=== PATIENT | male | born 1940 | race Caucasian/White ===

== ENCOUNTER 2016-12-22 07:31 | Day surgery (SDC) | payer MEDICARE ==
[2016-12-22] VITALS (8 sets, daily range): BP systolic 110–129; BP diastolic 58–66; PULSE 49–56; RESP 7–14; O2SAT 95–100
[~2016-12-22] VITALS: Ht 175.3 cm; Wt 67.1 kg
[~2016-12-22 07:31] MED LIST: ALEN70SO3 PO; CALC500C PO; CHOL400T3 PO; CeFAZolin Inj 2 GM in IV Premix 1 EACH IV SCH; HYDR-4003 PO; MULT-1018 PO; ONDA-53 PO; VERA180T5 PO; [UNRECOGNIZED DRUG - CODE] MC; probiotic PO
[2016-12-22] MEDS ORDERED: Propofol 10,000 mCg/mL 20 mL Inj ONE (07:32)
[2016-12-22] MEDS ORDERED: Lidocaine PF 1% 30 mL Inj ONE (07:32)
[2016-12-22] MEDS ORDERED: Ondansetron 2 mg/mL 2 mL Inj ONE (07:32)
[2016-12-22] MEDS ORDERED: fentaNYL-PF 50 mCg/mL 2 mL Inj ONE (07:32)
[2016-12-22] MEDS ORDERED: Glycopyrrolate 0.2 mg/mL 5 mL Inj ONE (07:32)
[2016-12-22] MEDS ORDERED: EPHEDrine/NS 5 mg/mL 5 mL Syringe ONE (07:32)
[2016-12-22] MEDS ORDERED: Dexamethasone 4 mg/mL Inj ONE (07:32)
[2016-12-22] MEDS: Lactated Ringer's 1,000 ML IV SCH ×2 (08:50→10:46)
[2016-12-22] MEDS ORDERED: LOSA25TA21 PO (08:58)
[2016-12-22] MEDS ORDERED: CHOL200025 PO (09:01)
[2016-12-22] MEDS ORDERED: Lactated Ringer's 500 ML IV PRN (11:07)
[2016-12-22] MEDS ORDERED: Lactated Ringer's 1,000 ML IV SCH (11:07)
--- NOTE | 2016-12-22 11:07 | PCM.HPANE ---
Patient Data Surgeon Admitting Provider: Attending Provider:Zac Marti MD Primary Care Physician:Loc Roach MD Other Provider:Lalito Bhandari Anesthesia Reason for Visit Right Renal Calculus Ht/WT & BMI Height (Feet): 5 Height (Inches): 9 Weight (Kilograms): 67.1 Body Mass Index 21.00 Allergies Coded Allergies: Lactose (Verified Allergy, Mild, 06/06/12) Soy (Verified Allergy, Mild, 06/06/12) Past Anesthesia History Anesthesia History: Denies:: Anesthesia Reactions Diabetes History Hx Diabetes?: No MRSA MRSA: No ((not MRSA- hx of staph infection)) Medications Home Meds Incl Beta Consuelo: No Reported Medications Cholecalciferol (Vitamin D3) (Vitamin D3)2,000 Unit Tablet2,000 Unit PO DAILY 12/22/16 Losartan Potassium 25 Mg Ltyktz15 Mg PO DAILY 12/22/16 Verapamil ER 180 Mg Tablet.er180 Mg PO BID Ref 0 12/21/16 [probiotic] No Conflict Check1 Tab PO DAILY 12/21/16 Multivitamin (Multi Vitamin Daily)1 Each Tablet1 Each PO DAILY 30 Days Ref 0 12/21/16 Cod Liver Oil 4,000 Ml Oil4,000 Ml MC DAILY 12/21/16 Calcium Carbonate (Calci-Mix)500 Mg Oycnhlg195 Mg PO BID 12/21/16 Alendronate Oral Soln 70 Mg/75 Ml Bkrutqip11 Mg PO WEEKLY Ref 0 12/21/16 Discontinued Reported Medications Cholecalciferol (Vitamin D3) (Vitamin D3)400 Unit Tab.tpva842 Unit PO DAILY 12/21/16 Ondansetron 4 Mg Tablet8 Mg PO q12p PRN For Nausea 12/21/16 Hydrocodone-Acetaminophen 5-325 mg 1 Each Tablet1 Tablet PO Q6H PRN For Pain Ref 0 12/21/16 AmLODIPine-Expunged Drug, Do Not Renew! 10 Mg Iuinjk61 Mg PO DAILY 06/06/12 Last Time Dose Received Took verapamil and losartan today History History of ENT Problems?: No Hx of Heart Problems?: Yes Cardiovascular History: Positive for:: Hypertension Denies:: Irregular Heartbeat Other Cardiac History: hx of chronic ITP- last platelet count 12/16/2016= 97 Hx of Respiratory Problem?: No Respiratory History: Denies:: Asthma COPD Emphysema Oxygen Administration Pneumonia Tuberculosis Use of C-PAP Machine Hx Neurologic Problems?: No Hx of GI Problems?: No Other GI Pertinent History: hx of irritable bowel syndrome Hx of Problems?: Yes Genitourinary History: Positive for:: Kidney Stones (right kidney stone current admission problem) Male Hx: Denies:: Prostate Problems Scrotal Mass Testicular Surgery Skin History: Denies:: History Skin Disorders? 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 Category 1B: Patient has history of documented sleep apnea, and HAS received any narcotic , sedative or anesthesia administration during this stay Category 2: Patient has SUSPECTED Obstructive Sleep Apnea, and HAS received any narcotic , sedative or anesthesia administration during this stay. Category 3: Patient has SUSPECTED Obstructive Sleep Apnea and HAS NOT received narcotic, sedative or anesthesia administration during this stay. Category 4: Outpatient in Procedural Areas with known sleep apnea or who screen positive for High Risk via the STOP/BANG questionnaire. Exam Exam Vital Signs Vital Signs Date Time Temp Pulse Resp B/P Pulse Ox O2 Delivery O2 Flow Rate FiO2 12/22/16 08:36 35.3 50 12 129/61 97 Room Air General Appearance: Alert, Oriented X3 HEENT/AIRWAY: MP 2, Neck Movement (FROM) Lungs: Clear to Auscultation, Clear to Percussion Heart: Exam Unremarkable, Regular Rate/Rhythm Meds/Labs/Diagnostics Admission Meds Current Medications Lactated Ringer's (Lr) 1,000 ml @ 120 mls/hr Q8H20M IV Last administered on t 08:50; Start 12/22/16 at 05:00; Stop 12/22/16 at 13:19 Plan Impression Patient chart reviewed, patient interviewed and anesthestic plan with risks, benefits, and alternatives discussed, and informed consent obtained. NPO Status: 12/21/16 ASA Physical Status: ASA3 Severe Disease (ITP; lymphoma) Anesthetic Plan: GA Bene/Risks/Altern/Consents: Yes HP Complete Prior to Induction: Yes Antonino Wright MD Dec 22, 2016 10:29
[2016-12-22] MEDS ORDERED: Ondansetron 2 mg/mL 2 mL Inj IVPUSH PRN (11:10)
[2016-12-22] MEDS ORDERED: Phenylephrine 10,000 mCg/mL Inj IVPUSH PRN (11:10)
[2016-12-22] MEDS ORDERED: fentaNYL-PF 50 mCg/mL 2 mL Inj IVPUSH PRN (11:10)
[2016-12-22] MEDS ORDERED: HYDROmorphone 1 mg/mL Inj IVPUSH PRN (11:10)
[2016-12-22] MEDS ORDERED: EPHEDrine Sulfate 50 mg/mL Inj IVPUSH PRN (11:10)
[2016-12-22] MEDS ORDERED: Atropine 0.4 mg/mL Inj IVPUSH PRN (11:10)
[2016-12-22] MEDS ORDERED: MetoCLOpramide 5 mg/mL 2 mL Inj IVPUSH PRN (11:10)
[2016-12-22] MEDS ORDERED: Labetalol 5 mg/mL 4 mL Inj IV PRN (11:10)
--- NOTE | 2016-12-22 12:05 | PCM.SURGPO ---
Immediate Operative Note Date of Surgery: Dec 22, 2016 Pre Operative Diagnosis R renal calculus Post Operative Diagnosis R renal calculus Procedure Extracorporeal shock wave lithotripsy of R renal calculus Surgeon and Director Distribution Surgeon: Zac Marti MD Assistants: None Findings Pre-op KUB showed a 15 x 9 mm R renal pelvis calculus. ESWL of R renal calculus was performed at a rate of 60, up to a maximum energy level of 4, with a total of 2000 shocks administered. Of note, a 2 minute pause was performed after the initial 200 shocks to aid in calculus fragmentation. Of note, PVC's were noted after the initial approx. 500 shocks, and cardiac gating was started , with subsequent resolution of PVC's. Evidence for excellent fragmentation of calculus was seen on post-ESWL fluoroscopy. Complications There were no periprocedural complications identified. Surgical Specimen Removed: No Specimen sent to Pathology: No Anesthetic Administered: GA Grafts, Implants: None Output, Estimated Blood Loss: 0 Blood Admin during surgery: Yes-See Blood Administration Record (1 pack of platelet phresis (transfused pre-op in OR)) Additional information Patient to return to see me in 2 weeks for post-op visit, with KUB prior to appt. Zac Marti MD Dec 22, 2016 12:05
--- NOTE | 2016-12-22 12:15 | PCM.DISURG ---
Surgical Discharge Instruction Date of Service Dec 22, 2016 Dates of Hospitalization Date of Hospital Admission Dec 22, 2016 Providers Admitting Physician: Zac Marti MD Primary Care Physician: Loc Roach MD Attending Physician: Zac Marti MD Discharge Diagnosis Discharge Diagnosis R renal calculus Post Operative diagnosis R renal calculus Diet Discharge Diet: No restrictions, Other (Drink at least 10-12 8oz. glasses (3 liters) of fluids per day) Activity Discharge Activity-General: No driving while taking narcotic, Other (No strenuous exercise/activity or moderate or heavy lifting (> 10 lbs.) for 1 week) Dressing and Incisional Care Hygiene: May shower Additional Instructions Discharge Instructions Strain all urine Follow Up Plan Follow-up Provider (F9): Zac Marti MD Follow-up appointment: Weeks (2 weeks for post-op visit, with KUB prior to appt.) Call your provider for: Fever, Chills, Vomiting, Other (Pain uncontrolled by pain medications) Zac Marti MD Dec 22, 2016 12:15
[2016-12-22] MEDS ORDERED: HYDROcodone-APAP 5-325 mg Tablet PO PRN (12:20)
--- NOTE | 2016-12-22 13:03 | PCM.ANEP2 ---
Post Anesthesia Evaluation ASA/CMS Post Anesthesia VS in Patient's Normal Range?: Yes Resp Stable; Airway Patent?: Yes CV Function & Hydration Stable: Yes Mental Status Recovered?: Yes Pain control Satisfactory?: Yes N/V Control Satisfactory?: Yes Antonino Wright MD Dec 22, 2016 13:03
--- NOTE | 2016-12-22 13:03 | PCM.ANEP1 ---
Post Anesthesia Phase 1 PACU Phase 1 Assessment Date of Service: Dec 22, 2016 Vital Signs Vital Signs Date Time Temp Pulse Resp B/P Pulse Ox O2 Delivery O2 Flow Rate FiO2 12/22/16 12:37 50 13 114/62 95 Room Air 12/22/16 12:30 36.3 56 14 113/64 97 Room Air 12/22/16 12:15 36.3 52 12 110/59 100 Simple Mask 7 12/22/16 12:10 52 13 110/58 100 Simple Mask 7 12/22/16 12:05 53 7 110/58 99 Simple Mask 7 12/22/16 12:00 36.1 114/63 12/22/16 08:36 35.3 50 12 129/61 97 Room Air Anesthetic Administered: GA Level of Alertness: Awake, talking RAO's with Equal Strength: Yes Pain: No Nausea or Vomiting: No Oxygen Delivery: Simple Mask Lungs: Clear to Auscultation, Clear to Percussion Antonino Wright MD Dec 22, 2016 13:03
--- NOTE | 2016-12-22 14:07 | DRSVH ---
PROCEDURE: X-RAY KUB ([id number]) INDICATIONS: RIGHT KIDNEY STONE TECHNIQUE: One view of the abdomen acquired. COMPARISON: [facility], CR, XR KUB, 07/20/2015, 11:31. FINDINGS: Surgical changes and devices: Fixation hardware involving the thoracic lumbar spine incompletely visu alized. Bowel: Bowel gas pattern is normal. Soft tissues: 1.3 cm calcification projected over the midpole the right kidney. Bones: No suspicious bony lesions. IMPRESSION: 1.3 cm calcification projected over the midpole the right kidney similar to prior CT scan . Dictated by: Lencho Noonan Tyesha Interpreted: Flower Montgomery MD on 12/22/2016 at 14:05 Transcribed by: NICOLÁS on 12/22/2016 at 14:06 Approved by: Flower Montgomery MD, PhD on 12/22/2016 at 17:05
--- NOTE | 2016-12-23 12:55 | OP ---
[address] [address] OPERATIVE REPORT PATIENT: ALVIN GARCIA : 1940 MR#: [id number] ADMIT: 12/22/2016 JOB ID: [id number] DATE OF SURGERY: 12/22/2016 PREOPERATIVE DIAGNOSIS(ES): Right renal calculus. POSTOPERATIVE DIAGNOSIS(ES): Right renal calculus. PROCEDURE: Extracorporeal shockwave lithotripsy of right renal calculus. SURGEON: Zac Marti MD ACCOUNT SERVICES SPECIALIST: None. ANESTHESIA: General. ESTIMATED BLOOD LOSS: 0 mL. BLOOD ADMINISTRATION DURING SURGERY: One pack of platelet pheresis (transfused preoperatively in the operating room). SPECIMENS: None. DRAINS: None. COMPLICATIONS: None. CONDITION: Stable. FINDINGS: Preop KUB showed a 15 x 9 mm right renal pelvis calculus. ESWL of right renal calculus was performed at a rate of 60, up to a maximum energy level of 4, with a total of 2000 shocks administered. Of note, a 2-minute pause was performed after the initial 200 shocks to aid in calculus fragmentation. Of note, PVCs were noted after the initial approximately 500 shocks and cardiac gating was started, with subsequent resolution of PVCs. Evidence for excellent fragmentation of calculus was seen on post ESWL fluoroscopy. INDICATIONS: The patient is a 76-year-old male with a right renal calculus seen by physician assistant sales director Joanna Daugherty. The patient now presents for extracorporeal shockwave lithotripsy of the right renal calculus. Of note, the patient has a history of ITP and lymphoma followed by care team assistant/oncologist Dr. 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 I discussed the patient's case with Dr. Roberts, about the patient's ITP and mild thrombocytopenia, and as discussed with Dr. Roberts the plan was to proceed with the extracorporeal shockwave lithotripsy as planned with transfusion of one pack of platelet pheresis preoperatively. The patient now presents for extracorporeal shockwave lithotripsy of right renal calculus. DESCRIPTION OF PROCEDURE: The patient was brought to the operating room and placed supine on the operating room table. Preop KUB showed a 15 x 9 mm right renal pelvis calculus. The patient was given Ancef IV antibiotics. The patient was transfused one pack of platelet pheresis preoperatively in the operating room just prior to the procedure after induction of anesthesia. Sequential compression device boots were placed. General anesthesia was administered. The patient was left in supine position. Extracorporeal shockwave lithotripsy of the right renal calculus was performed at a rate of 60, up to a maximum energy level of 4, with a total of 2000 shocks administered. Of note, a 2-minute pause was performed after the initial 200 shocks to aid in calculus fragmentation. Of note, PVCs were noted after the initial approximately 500 shocks and cardiac gating was started, with subsequent resolution of PVCs. Evidence for excellent fragmentation of calculus was seen on post ESWL fluoroscopy. The patient was awakened from general anesthesia and transferred to recovery room in stable condition. The patient tolerated the procedure well. The plan is for the patient to return to see me in two weeks in the office for postop visit with a KUB prior to the appointment. MIRANDA
== END 2016-12-22 23:59 | disposition home or self-care (01) ==
LOC: SAS 07:31
PROVIDERS: ATTEND Urology
DX: N20.0 Calculus of kidney (principal); N40.0 Benign prostatic hyperplasia without lower urinary tract symptoms; I10 Essential (primary) hypertension
CPT/HCPCS: 36415; 50590; 74000; 93005; J0690; J1100; J2405; J3010; J7120